=== PATIENT | male | born 1995 | race Caucasian/White ===

== ENCOUNTER 2016-12-26 10:02 | Emergency (ER) | payer BC ==
[~2016-12-26] VITALS: Ht 162.6 cm; Wt 57.0 kg
[~2016-12-26 10:02] MED LIST: BUPR150T3 PO; DOCU1CAP39 PO; MIRA33502 PO
[2016-12-26 10:05] VITALS: BP 129/71; PULSE 74; RESP 15; TEMP 98.2; O2SAT 98
--- NOTE | 2016-12-26 10:56 | PD ---
HPI Chief Complaint: ENT Complaint Time Seen by Provider: 10:56 Travel History International Travel<30 days: No Contact w/Intl Traveler<30days: No Traveled to known affect area: No History of Present Illness HPI 21-year-old male presents to the emergency department for evaluation of sore throat for 2 days. He is unsure if he has run a fever. He denies any other symptoms. He has no chronic medical problems and takes no medications. No cough, chest pain, shortness breath. No abdominal pain. No vomiting. No other complaints. PFSH Past Medical History Medical History: Denies Significant Hx Past Surgical History Surgical History: No Previous Surgery Social History Alcohol Use: No Tobacco Use: No Substance Use: No Allergies-Medications (Allergen,Severity, Reaction): Coded Allergies: Bees (Verified Allergy, Severe, 12/26/16) Reported Meds & Prescriptions Reported Meds & Active Scripts Active Colace 100 Mg Cap (Docusate Sodium) 100 Mg Cap 100 Mg PO BID 10 Days Miralax (Polyethylene Glycol) 255 Gm Powd 1 Capful PO HS 10 Days MIX 1 CAPFUL (17 GM) IN 8 OZ OF WATER Reported Bupropion Hcl Xl (Bupropion HCl) 150 Mg Tab 150 Mg PO BID Review of Systems Except as stated in HPI: all other systems reviewed are Neg Physical Exam Narrative GENERAL: Well-nourished, well-developed male patient, ambulatory. Afebrile. SKIN: Focused skin assessment warm/dry. HEAD: Normocephalic. Atraumatic. ENT: Mucosa pink and moist. Bilateral tonsils and uvula are erythematous, but without swelling or exudates. No uvular edema. No uvular, palatal, or tonsillar deviation. Airway patent. Nasal turbinates appear normal without nasal blood, purulent drainage or septal hematoma. Bilateral tympanic membranes are clear without erythema or perforation. EYES: No scleral icterus. No injection or drainage. NECK: Supple, trachea midline. No JVD or lymphadenopathy. CARDIOVASCULAR: Regular rate and rhythm without murmurs, gallops, or rubs. RESPIRATORY: Breath sounds equal bilaterally. No accessory muscle use. Lungs sounds are clear to auscultation. GASTROINTESTINAL: Abdomen soft, non-tender, nondistended. MUSCULOSKELETAL: No cyanosis, or edema. Data Data Last Documented VS Vital Signs Date Time Temp Pulse Resp B/P Pulse Ox O2 Delivery O2 Flow Rate FiO2 12/26/16 10:05 98.2 74 15 129/71 98 Orders Group A Rapid Strep Screen (12/26/16 10:55) MDM Medical Decision Making Medical Screen Exam Complete: Yes Emergency Medical Condition: Yes Differential Diagnosis Strep pharyngitis versus viral pharyngitis versus URI versus mononucleosis Narrative Course 21-year-old male presents to the emergency department for evaluation of sore throat for 2 days. Strep swab is ordered and pending. Strep swab is positive. Patient was discharged prescription for pen VK. He is to do warm salt water gargles and take Tylenol/ibuprofen [id number] as needed. He is agreeable to this plan. The patient was discharged in stable condition with instructions, including return instructions and follow up instructions. Diagnosis Primary Impression: Strep pharyngitis Referrals: Primary Care Physician call for appointment Patient Instructions: General Instructions, Strep Throat (ED) Departure Forms: Tests/Procedures, Work Release Enter return to work date: Dec 28, 2016 Additional Instructions: Take antibiotic as directed until gone. Warm salt water gargles. Tylenol/Motrin [id number] for pain. Follow-up with your primary care physician. Return to the emergency department for any acute worsening of symptoms. Med/Other Pt SpecificInfo: Prescription(s) given Scripts Penicillin V Potassium 500 Mg [id number] Mg PO Q8H 10 Days Ref 0 Prov:Vanessa Blanco 12/26/16 Disposition: 01 DISCHARGE HOME Condition: Stable Vanessa Blanco Dec 26, 2016 10:56
[2016-12-26] MEDS ORDERED: PENI500T PO (11:56)
== END 2016-12-26 12:10 | disposition home or self-care (01) ==
LOC: NEPB 10:02
DX: J02.0 Streptococcal pharyngitis (principal); B95.0 Streptococcus, group A, as the cause of diseases classified elsewhere
CPT/HCPCS: 87880; 99283